=== PATIENT | female | born 1935 | race Caucasian/White ===

== ENCOUNTER 2018-11-12 10:41 | Observation (INO) | payer MEDICARE, MEDICAID ==
[2018-11-12] MEDS: ASPIRIN 81 MG TAB PO (11:18)
[2018-11-12] MEDS: NITROGLYCERIN 2% 1 GM OINT PKT TD (11:18)
[2018-11-12] MEDS: NITROGLYCERIN (SL) 0.4 MG TAB SL (11:18)
[2018-11-12 11:38] LABS: ADD MAN DIFF? NO
[2018-11-12 11:45] LABS: BASOPHIL # 0.1 10^3/ul (0.0-0.1); BASOPHILS % 1.3 % (0.0-2.0); EOSINOPHILS # 0.3 10^3/ul (0.0-0.5); EOSINOPHILS % 5.1 % (0.0-7.0); HEMATOCRIT 32.4 % (37.0-47.0); HEMOGLOBIN 10.2 g/dl (12.0-16.0); LYMPHOCYTES # 1.7 10^3/ul (0.8-2.9); LYMPHOCYTES % 25.3 % (15.0-51.0); MEAN CORPUSCULAR HEMOGLOBIN 28.3 pg (29.0-33.0); MEAN CORPUSCULAR HGB CONC 31.5 g/dl (32.0-37.0); MEAN CORPUSCULAR VOLUME 89.8 fl (82.0-101.0); MEAN PLATELET VOLUME 9.8 fl (7.4-10.4); MONOCYTE # 0.7 10^3/ul (0.3-0.9); MONOCYTES % 9.8 % (0.0-11.0); NEUTROPHIL # 3.9 10^3/ul (1.6-7.5); NEUTROPHILS % 58.1 % (39.0-77.0); PLATELET COUNT 314 10^3/UL (140-415); RED BLOOD COUNT 3.61 10^6/ul (4.20-5.40); RED CELL DISTRIBUTION WIDTH 14.5 % (11.5-14.5)
[2018-11-12 11:45] LABS: WHITE BLOOD COUNT 6.7 10^3/ul (4.8-10.8)
[2018-11-12 12:01] LABS: ANION GAP 7 (5-13); BLOOD UREA NITROGEN 30 mg/dl (7-20); CALCIUM 9.1 mg/dl (8.4-10.2); CARBON DIOXIDE 26 mmol/L (21-31); CHLORIDE 106 mmol/L (97-110); CREATININE 1.58 mg/dl (0.44-1.00); GLUCOSE 86 mg/dl (70-220); POTASSIUM 4.3 mmol/L (3.5-5.1); SODIUM 139 mmol/L (135-144)
[2018-11-12 12:13] LABS: TROPONIN-I < 0.012 ng/ml (0.000-0.120)
[2018-11-12] MEDS ORDERED: ONDANSETRON 4 MG INJ IV (14:00)
[2018-11-12] MEDS ORDERED: morphine 2 MG INJ IV (14:00)
[2018-11-12] MEDS ORDERED: DOCUSATE SODIUM 100 MG CAP PO (14:00)
[2018-11-12] MEDS ORDERED: ACETAMINOPHEN 325 MG TAB PO ×2 (14:00)
[2018-11-12] MEDS ORDERED: ZOLPIDEM 5 MG TAB PO (14:00)
[2018-11-12] MEDS ORDERED: NACL 0.9% 3 ML SYG IV (14:00)
[2018-11-12 15:59] LABS: CREATINE KINASE 161 IU/L (23-200)
[2018-11-12 16:12] LABS: CK INDEX 0.8; CK-MB 1.31 ng/ml (0.0-2.4); TROPONIN-I < 0.012 ng/ml (0.000-0.120)
[2018-11-12] MEDS: REGADENOSON 0.4 MG/5 ML SYG (17:01)
[2018-11-12] MEDS: FAMOTIDINE 20 MG TAB PO (18:06)
[2018-11-13] MEDS ORDERED: ENOXAPARIN 30 MG/0.3 ML SYG SC (09:00)
== END 2018-11-12 19:49 | disposition home or self-care (01) ==
LOC: E/R 10:41 → TEL 13:38
DX: R07.9 Chest pain, unspecified (principal); I10 Essential (primary) hypertension; E78.5 Hyperlipidemia, unspecified; E66.9 Obesity, unspecified; Z68.33 Body mass index [BMI] 33.0-33.9, adult; E78.00 Pure hypercholesterolemia, unspecified; M19.90 Unspecified osteoarthritis, unspecified site
CPT/HCPCS: 71045; 78452; 80048; 82550; 82553; 84484; 85025; 93005; 93017; 93306; G0378